=== PATIENT | male | born 1940 | race Caucasian/White ===

== ENCOUNTER 2018-01-31 08:38 | Outpatient (CLI) | payer BC, MEDICARE | END 2018-01-31 23:59 | disposition home or self-care (01) | LOC: RT 08:38 | PROVIDERS: ATTEND Internal Medicine Pulmonary Disease | DX: J44.9 Chronic obstructive pulmonary disease, unspecified (principal); Z87.891 Personal history of nicotine dependence | CPT/HCPCS: 94618 ==